=== PATIENT | male | born 1965 | race African-American/Black ===

== ENCOUNTER 2021-07-14 04:38 | Day surgery (SDC) | payer OTHER ==
[2021-07-12 14:23] VITALS: BMI 25.8
[2021-07-14] MEDS ORDERED: PROPOFOL 20 ML ONE (08:38)
[2021-07-14] MEDS ORDERED: MIDAZOLAM HCL 2 MG/2 ML SINGLE DOSE VIAL ONE (08:38)
[2021-07-14] MEDS ORDERED: ceFAZolin SODIUM 1 GM VIAL ONE (08:40)
[2021-07-14] MEDS ORDERED: LIDOCAINE HCL/PF 2% SDV 5ML VIAL ONE (08:40)
[2021-07-14] MEDS ORDERED: DEXAMETHASONE SOD PHOSPHATE 4 MG/1 ML VIAL ONE (08:40)
[2021-07-14] MEDS ORDERED: BUPIVACAINE HCL/PF 0.5% (5MG/ML) 10 ML VIAL ONE (09:06)
[2021-07-14] MEDS ORDERED: oxyCODONE HCL 5 MG TABLET PO PRN (09:08)
[2021-07-14] MEDS ORDERED: ONDANSETRON 4 MG/2 ML VIAL IVPUSH PRN (09:08)
[2021-07-14] MEDS ORDERED: LACTATED RINGERS SOLUTION 1,000 ML IV SCH (09:15)
[2021-07-14] MEDS ORDERED: BUPIVACAINE HCL/PF 0.5% (5MG/ML) 10 ML VIAL IJ ONE (10:12)
[2021-07-14] MEDS ORDERED: oxyCODONE HCL 5 MG TABLET ONE (11:46)
[2021-07-14 12:59] VITALS: BP 107/68; PULSE 56; TEMP 97.1
== END 2021-07-14 13:15 | disposition home or self-care (01) ==
LOC: JASU-SURG 04:38
PROVIDERS: ATTEND Orthopaedic Surgery
PROC: 0SBC4ZZ Excision of Right Knee Joint, Percutaneous Endoscopic Approach (ICD-10-PCS; 2021-07-14)
PROC: 0SBC4ZZ Excision of Right Knee Joint, Percutaneous Endoscopic Approach (ICD-10-PCS; principal; 2021-07-14 09:00)
DX: S83.231A Complex tear of medial meniscus, current injury, right knee, initial encounter (principal); M17.11 Unilateral primary osteoarthritis, right knee; M65.861 Other synovitis and tenosynovitis, right lower leg; X58.XXXA Exposure to other specified factors, initial encounter; Y93.9 Activity, unspecified; Y92.9 Unspecified place or not applicable; Y99.9 Unspecified external cause status
CPT/HCPCS: 94760